=== PATIENT | female | born 1935 | race Caucasian/White ===

== ENCOUNTER 2017-10-14 17:59 | Emergency (ER) | payer MEDICARE ==
[~2017-10-14] VITALS: Ht 172.7 cm; Wt 80.7 kg
[~2017-10-14 17:59] MED LIST: BENADRYL25 M1 PO; CITALOPRAM HBR40 MG PO; DOXYCYCLINE HY100 MG PO; LEVOTHYROXINE100 MCG PO; NORCO 10-325 T1 EACH PO; TRIAMTERENE-HC1 EAC1 PO; TYLENOL WITH C1 EACH PO
== END 2017-10-14 20:32 | disposition short-term general hospital (02) ==
LOC: ER 17:59
DX: Z53.21 Procedure and treatment not carried out due to patient leaving prior to being seen by health care provider (principal)

== ENCOUNTER 2017-11-30 01:52 | Inpatient (IN) | payer MEDICARE ==
[2017-11-30] VITALS (31 sets, daily range): BP systolic 97–177; BP diastolic 52–109
[~2017-11-30] VITALS: Ht 170.2 cm; Wt 83.1 kg
--- OUTSIDE RECORDS SUMMARY | 2017-11-30 01:55 | XMS REPORT | Continuity of Care Document ---
Author Author [facility] Organization [facility] Address [address] [place] [address] Phone Unavailable Care Team Providers Care Straightening Roll Operator Name Role Phone ROOSEVELT CHENG MD PCP Insurance Providers Guarantor Saeed Tavera Address [address] [place] [address] Email NONE Payer [employer] Policy Number [id number] Subscriber's Name Saeed Tavera Relationship 18 Self / Same As Patient Group Number [id number] Group Name RETIRED Advance Directives Directive Response Recorded Date/Time Does the patient have an advance directive? No 08/02/09 3:12pm If yes, is advance directive on file with [facility]? No 08/02/09 3:12pm If not on file with [facility] will patient provide a copy? No 12/17/13 10:36am Do you have a Directive to Physician? No 10/14/17 8:37pm Do you have a Medical Power of Planer Off Bearer? No 10/14/17 8:37pm Do you have an out of hospital Do Not Resuscitate Order? No 10/14/17 8:37pm Do you have any special needs we should be aware of? No 10/14/17 8:37pm Do you have a support person here with you today? Yes 10/14/17 8:37pm Did patient receive Notice of Privacy Practices? Yes 10/14/17 8:37pm Did patient receive patient rights and responsibilities? Yes 10/14/17 8:37pm Problems No problem information available. Medications Current Home Medications Medication Dose Units Route Directions Days Qty Instructions Start Date Acetaminophen With Codeine (Tylenol With Codeine #3 Tablet) 1 Each Tablet 300 Mg Oral Every 6 Hours Acetaminophen With Codeine (Tylenol With Codeine #3 Tablet) 1 Each Tablet 300 Mg Oral Every 6 Hours Citalopram Hydrobromide (Citalopram Hbr) 40 Mg Tablet 40 Mg Oral Daily Diphenhydramine Hcl (Benadryl) 25 Mg Capsule Mg Oral Daily Doxycycline Hyclate 100 Mg Capsule 100 Mg Oral Daily Doxycycline Hyclate 100 Mg Capsule 100 Mg Oral Daily Hydrocodone Bit/Acetaminophen ([place] 10-325 Tablet) 1 Each Tablet 10-325 Mg Oral Four Times Daily Levothyroxine Sodium 100 Mcg Tablet 100 Mcg Oral Daily Triamterene/Hydrochlorothiazid (Triamterene-Hctz 75-50 Mg Tab) 1 Each Tablet Mg Oral Daily Social History Social History Problem Response Recorded Date/Time Onset Date Status Hx Psychiatric Problems No 12/20/2013 11:04am Not Applicable Not Applicable Hx Depression Y - depression 12/20/2013 11:04am Not Applicable Not Applicable Hospital Discharge Instructions No hospital discharge instruction information available. Plan of Care Discharge Date 10/14/17 8:32pm Disposition REQUEST WITHDRAWN FOR MSE Condition at Discharge Stable Forms Provided Work/School Excuse Prescriptions See Medication Section Functional Status No functional status information available. Allergies, Adverse Reactions, Alerts Allergen Type Severity Reaction Status Last Updated Iodine Allergy Mild Active 10/14/17 Cephalexin Allergy Unknown Active 10/14/17 EGGS Allergy Unknown Active 08/03/09 Immunizations No immunization information available. Vital Signs Acute Vital Signs Vital Response Date/Time Height 5 ft 8 in 10/14/2017 6:28pm Weight 178 lb 10/14/2017 6:28pm Body Mass Index 27.1 kg/m^2 10/14/2017 6:28pm Results No relevant diagnostic test, laboratory data and/or discharge summary information available. Procedures No procedure information available. Encounters Encounter Location Arrival/Admit Date Discharge/Depart Date Attending Provider Departed Emergency Room [facility] 10/14/17 5:59pm 8:32pm MEGAN NULL MD
[2017-11-30] MEDS ORDERED: SODIUM CHLORIDE 0.9% 1000ML 1,000 ML IV STA (02:29)
[2017-11-30] MEDS ORDERED: PANTOPRAZOLE 40 MG 10ML VIAL IV STA (02:29)
[2017-11-30] MEDS ORDERED: ONDANSETRON HCL 4 MG ORAL DISINTEGRATING TAB PO ONE (02:30)
[2017-11-30 02:43] LABS: BASOPHILS # (AUTO) 0.1 (0.0-0.1); BASOPHILS % 0.7 % (0.0-1.0); EOSINOPHILS # (AUTO) 0.2 (0.0-0.4); EOSINOPHILS % 1.6 % (0.0-6.0); HEMATOCRIT 50.4 % (34.2-44.1); HEMOGLOBIN 16.1 g/dL (12.0-16.0); LYMPHOCYTES # (AUTO) 2.8 (1.0-3.2); LYMPHOCYTES % 25.1 % (18.0-39.1); MEAN CORPUSCULAR HGB CONC 31.9 g/dL (31-35); MEAN CORPUSCULAR VOLUME 87.8 fL (81-99); MONOCYTES # (AUTO) 0.4 (0.2-0.8); MONOCYTES % 3.1 % (4.4-11.3); NEUTROPHILS # (AUTO) 7.8 (2.1-6.9); NEUTROPHILS % 69.1 % (38.7-80.0); PLATELET COUNT 226 x10e3/uL (140-360); RED BLOOD COUNT 5.74 x10e6/uL (3.6-5.1)
[2017-11-30 02:48] LABS: INR 0.97; PARTIAL THROMBOPLASTIN TIME 18.2 seconds (23.8-35.5); PROTHROMBIN TIME 12.1 seconds (11.9-14.5)
[2017-11-30 02:56] LABS: ALANINE AMINOTRANSFERASE 6 IU/L (0-55); ALBUMIN 4.1 g/dL (3.5-5.0); ALKALINE PHOSPHATASE 56 IU/L (40-150); AMYLASE 70 U/L (25-125); ANION GAP 20.2 mmol/L (8-16); BLOOD UREA NITROGEN 17 mg/dL (7-26); BUN/CREATININE RATIO 19 (6-25); CALCIUM 10.4 mg/dL (8.4-10.2); CARBON DIOXIDE 23 mmol/L (22-29); CHLORIDE 98 mmol/L (98-107); CREATINE KINASE 36 IU/L (29-168); EST GLOMERULAR FILTRATION RATE 60 ML/MIN (60-); GLUCOSE 138 mg/dL (74-118); LIPASE 64 U/L (8-78); MAGNESIUM 1.9 MG/DL (1.3-2.1); POTASSIUM 3.2 mmol/L (3.5-5.1); SODIUM 138 mmol/L (136-145)
[2017-11-30 03:16] LABS: THYROID STIMULATING HORMONE 5.115 uIU/mL (0.350-4.940)
--- NOTE | 2017-11-30 04:08 | Diagnostic Imaging Report ---
CHEST SINGLE (PORTABLE), 11/30/2017 2:29 AM Technique: CHEST SINGLE (PORTABLE) Comparison: None available. Clinical history: Nausea, vomiting Findings: See Impression Impression: 1. Normal heart size. Atherosclerotic disease. Prominent ascending thoracic aortic contour which may be related to tortuosity or ectasia. Recommend follow-up upright PA and lateral. 2. Mild bibasilar atelectasis. No effusion or pneumothorax. Signed by: Dr Susy Mary MD on 11/30/2017 4:04 AM
--- NOTE | 2017-11-30 04:29 | Diagnostic Imaging Report ---
EXAM: CT ABDOMEN/PELVIS WO DATE: 11/30/2017 2:29 AM INDICATION: \S\N/V, LLQ MASS ? HERNIA ? SBO, UNABLE TO DRINK PO CONTRAST \S\[id number] \S\[id number] COMPARISON: None TECHNIQUE: The abdomen and pelvis were scanned using a multidetector helical scanner. Coronal and sagittal reformations were obtained. Routine protocol performed. IV Contrast: 0 ml Isovue 300/370 FINDINGS: Lack of IV contrast decreases sensitivity in evaluating abdominal and pelvic organs. In addition, evaluation is degraded by noise related to arm positioning and spinal hardware. LOWER THORAX: Mild bibasilar atelectasis. Coronary artery disease. Partially imaged bilateral breast implants, the right laterally deviated. LIVER/BILIARY: No gross masses. Mild biliary ductal dilation status post ed cholecystectomy SPLEEN: Unremarkable PANCREAS: Unremarkable ADRENALS: No nodules KIDNEYS: Simple appearing 3.7 cm right inferior renal cystic lesion. Diffuse renal vascular calcifications. No hydronephrosis. 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 No significant upstream bowel dilatation. Diverticulosis. VESSELS: Severe atherosclerotic calcifications with focal ectasia of the infrarenal abdominal aorta measuring up to 2.6 cm PERITONEUM/RETROPERITONEUM: No free air or fluid LYMPH NODES: No lymphadenopathy REPRODUCTIVE ORGANS/BLADDER: Bladder decompressed with a Murphy. Limited by streak artifact. SOFT TISSUES: See above BONES: Multilevel degenerative changes. Postsurgical changes with L4-S1 fusion/decompression and left hip arthroplasty. Mild height loss of T8-T9 and anterior L2. Minimal retrolisthesis of L1 over L2, anterolisthesis of L3 over L4. IMPRESSION: Evaluation degraded by lack of IV contrast, particularly in the assessment of bowel/bowel wall. 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 Discussed with Dr. Pozo at 4:20 AM on 11/30/2017. Signed by: Dr Susy Mary MD on 11/30/2017 4:26 AM
[2017-11-30 04:33] LABS: B-TYPE NATRIURETIC PEPTIDE2 < 10.0 pg/mL (0-100)
[2017-11-30 04:34] LABS: CLARITY,URINE CLEAR (CLEAR); COLOR,URINE YELLOW (YELLOW); LEUKOCYTE ESTERASE ,URINE 2+ (NEGATIVE); NITRITE,URINE NEGATIVE (NEGATIVE)
[2017-11-30 04:35] LABS: BILIRUBIN,URINE NEGATIVE (NEGATIVE); KETONES,URINE NEGATIVE (NEGATIVE); PROTEIN,URINE DIPSTICK 1+ (NEGATIVE); URINE UROBILINOGEN 1 mg/dL (0.2 - 1)
[2017-11-30 04:39] LABS: BACTERIA,URINE MANY /HPF; EPITHELIAL CELLS,URINE FEW /LPF; RENAL EPITHELIAL CELLS,URINE FEW; TRANSITIONAL EPI CELLS,URINE MANY; WBC,URINE (MAN) >50 /HPF (0-5)
[2017-11-30] MEDS ORDERED: KCL 20MEQ/.9 SOD CHL 1,000 ML IV ONE (04:45)
[2017-11-30] MEDS ORDERED: BENZOCAINE/TETRACAINE/BUTAMBEN AERO SPRAY 56 GM CAN TOP ONE (04:45)
[2017-11-30] MEDS ORDERED: POTASSIUM CHLORIDE 10MEQ/100ML 100 ML IV SCH (04:45)
[2017-11-30] MEDS ORDERED: D5.45%NS/KCL 20MEQ 1,000 ML IV ONE (04:45)
[2017-11-30] MEDS ORDERED: LIDOCAINE VISC 2% SOLN 15 ML UDC ONE (04:54)
[2017-11-30] MEDS: PIPER-TAZ 3.375 GM 50 ML IV SCH ×3 (05:04→17:33)
--- OUTSIDE RECORDS SUMMARY | 2017-11-30 05:12 | XMS REPORT ---
Author Author [facility] Address Unknown Phone Unavailable Care Team Providers Care Spinning Mule Operator Name Role Phone TUSHAR MICHAEL Unavailable Unavailable Problems This patient has no known problems. Allergies, Adverse Reactions, Alerts This patient has no known allergies or adverse reactions. Medications This patient has no known medications. Results Test Description Test Time Test Comments Text Results Atomic Results Result Comments CHEST SINGLE (PORTABLE) [place] [address] Patient Name: SAEED TAVERA MR #: [id number] : 1935 Age/Sex: 82/F Req #: [id number] Adm Physician: Ordered by: TUSHAR MICHAEL MD Report #: [id number] Location: ER Room/Bed: Procedure: [id number] DX/CHEST SINGLE (PORTABLE) Exam Date: 11/30/17 Exam Time: 0334 REPORT STATUS: Signed CHEST SINGLE ( PORTABLE), 11/30/2017 2:29 AM Technique: CHEST SINGLE (PORTABLE) Comparison: None available. Clinical history: Nausea, vomiting Findings: See Impression Impression: 1. Normal heart size. Atherosclerotic disease. Prominent ascending thoracic aortic contour which may be related to tortuosity or ectasia. Recommend follow-up upright PA and lateral. 2. Mild bibasilar atelectasis. No effusion or pneumothorax. Signed by: Dr Regina Mary MD on 11/30/2017 4:04 AM Dictated By: REGINA MARY MD 3 Transcribed By: LISA on 11/30/17403 COPY TO: TUSHAR MICHAEL MD CT ABDOMEN/PELVIS WO [place] [address] Patient Name: SAEED TAVERA MR #: [id number] : 1935 Age/Sex: 82/F Req #: [id number] Adm Physician: Ordered by: TUSHAR MICHAEL MD Report #: [id number] Location: ER Room/Bed: Procedure: [id number] CT/CT ABDOMEN/PELVIS WO Exam Date: 11/30/17 Exam Time: 324 REPORT STATUS: Signed EXAM: CT ABDOMEN/ PELVIS WO DATE: 11/30/2017 2:29 AM INDICATION: S N/V, LLQ MASS ? HERNIA ? SBO, UNABLE TO DRINK PO CONTRAST COMPARISON: None TECHNIQUE: The abdomen and pelvis were scanned using a multidetector helical scanner. Coronal and sagittal reformations were obtained. Routine protocol performed. IV Contrast: 0 ml Isovue 300/370 FINDINGS: Lack of IV contrast decreases sensitivity in evaluating abdominal and pelvic organs. In addition, evaluation is degraded by noise related to arm positioning and spinal hardware. LOWER THORAX: Mild bibasilar atelectasis. Coronary artery disease. Partially imaged bilateral breast implants, the right laterally deviated. LIVER/BILIARY: No gross masses. Mild biliary ductal dilation status post ed cholecystectomy SPLEEN: Unremarkable PANCREAS: Unremarkable ADRENALS: No nodules KIDNEYS: Simple appearing 3.7 cm right inferior renal cystic lesion. Diffuse renal vascular calcifications. No hydronephrosis. 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 No significant upstream bowel dilatation. Diverticulosis. VESSELS: Severe atherosclerotic calcifications with focal ectasia of the infrarenal abdominal aorta measuring up to 2.6 cm PERITONEUM/RETROPERITONEUM: No free air or fluid LYMPH NODES: No lymphadenopathy REPRODUCTIVE ORGANS/BLADDER: Bladder decompressed with a Murphy. Limited by streak artifact. SOFT TISSUES: See above BONES: Multilevel degenerative changes. Postsurgical changes with L4-S1 fusion/ decompression and left hip arthroplasty. Mild height loss of T8-T9 and anterior L2. Minimal retrolisthesis of L1 over L2, anterolisthesis of L3 over L4. IMPRESSION: Evaluation degraded by lack of IV contrast, particularly in the assessment of bowel/bowel wall. 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 Discussed with Dr. Michael at 4:20 AM on 2017. Signed by: Dr Regina Mary MD on 11/30/2017 4:26 AM Dictated By: REGINA MARY MD 5 COPY TO: TUSHAR MICHAEL MD
[2017-11-30] MEDS ORDERED: ONDANSETRON HCL 4 MG ORAL DISINTEGRATING TAB PO PRN (05:15)
[2017-11-30] MEDS ORDERED: MORPHINE SULFATE 2 MG/ML SYR IV PRN (05:15)
[2017-11-30] MEDS: HYDRALAZINE HCL 20 MG/ML VIAL IV PRN ×3 (06:30→19:44)
[2017-11-30] MEDS ORDERED: HYDRALAZINE HCL 20 MG/ML VIAL IV PRN (06:30)
[2017-11-30] MEDS ORDERED: BUPIVACAINE 0.25%/EPI 30ML SDV INJ ONE (06:37)
[2017-11-30] MEDS ORDERED: SODIUM CHLORIDE 0.9% 50ML 0 ML ONE (06:42)
[2017-11-30] MEDS: METRONIDAZOLE 500MG/NS 100ML 100 ML IV SCH ×3 (07:06→18:29)
[2017-11-30] MEDS ORDERED: HYDROMORPHONE 1MG/1ML INJ IV PRN (07:45)
[2017-11-30] MEDS: PANTOPRAZOLE 40 MG 10ML VIAL IV SCH (09:40)
[2017-11-30] MEDS: SODIUM CHLORIDE 0.9% 1000ML 1,000 ML IV SCH ×4 (09:40→23:45)
--- NOTE | 2017-11-30 10:59 | History and Physical ---
An 82-year-old female comes in with abdominal pain. HISTORY OF PRESENT ILLNESS: This is Ms. Godoy with a history of hypertension, history of depression, osteoarthritis, fibromyalgia, who was in her usual state of health until the patient started to have nausea, vomiting and abdominal pain. The patient came in and was found to have spigelian hernia. The patient is due to emergent surgery. PAST MEDICAL HISTORY: History of hypertension, history of hypothyroidism, history of fibromyalgia, history of low back pain, and history of depression too, and osteoarthritis. PAST SURGICAL HISTORY: The patient has a history of appendectomy, cholecystectomy, left hip surgery, hysterectomy, and right and left mastectomies. MEDICATIONS: She takes at home: 1. Acetaminophen with codeine for back pain. 2. Citalopram 40 mg daily. 3. Benadryl 25 mg as needed. 4. Doxycycline at this time 100 mg twice a day. 5. Hydrocodone 10 mg per 325 mg q.i.d. 6. Levothyroxine 100 mcg a day. 7. Triamterene with hydrochlorothiazide 75 mg per 50 mg once a day. SOCIAL HISTORY: Lives by herself. No ETOH. No IV drug abuse. REVIEW OF SYSTEMS: Negative for chest pain. No shortness of breath. Positive for nausea and vomiting. No diarrhea. No constipation. No rectal bleeding, hematochezia and no hematemesis either. No diplopia. No blurry vision. Positive for back pain. Positive for generalized body aches. The patient has been seen by Dr. Proctor about a month ago. At that time, the patient refused surgery, and comes now for abdominal pain. PHYSICAL EXAMINATION GENERAL: The patient is alert and oriented times 3. VITAL SIGNS: Temperature is 98.9, pulse 78, respirations 14, blood pressure 216/101, pulse ox is 89% and then came up to 97%. Blood pressure better at 169/75 at this time. HEENT: Normocephalic and atraumatic. Pupils reactive to light and accommodation. CV: S1 and S2 normal. Regular rate and rhythm. ABDOMEN: Nontender and nondistended. EXTREMITIES: No clubbing. No cyanosis. No edema. NEUROLOGICAL: Alert. Mental status: The patient has normal response. Reflexes are normal. No sensory deficits noted. LABS: Initial white count was 11,000, hemoglobin 16.1, hematocrit 50.4. Chemistry: Sodium of 138, potassium 3.2, anion gap 20.2. Lactic acid was 28.8. Total bilirubin was 1.3. TSH was 5.14. Coags were good. PT 12.1, INR 0.97. The patient's CT of the abdomen shows a left lower quadrant spigelian hernia containing dilated small bowel with mesenteric edema. Chest x-ray shows normal heart size, mild vascular atelectasis. No effusion or pneumothorax. ASSESSMENT 1. Spigelian hernia: Plan is to take her to surgery. 2. Sepsis. 3. Hypertension. 4. History of depression. The patient will undergo surgery. Postoperative care to be followed. Dr. Proctor has been consulted, and will continue to monitor the patient with checking her lytes in the morning. Job#: [id number] MARYSE
[2017-11-30] MEDS ORDERED: ACETAMINOPHEN 1000 MG/100 ML IV NR (11:45)
[2017-11-30] MEDS ORDERED: ACETAMINOPHEN 325 MG TAB PO PRN (11:45)
[2017-11-30] MEDS ORDERED: VITAMIN D1000 UNI1 PO (15:03)
[2017-11-30] MEDS ORDERED: BENADRYL25 M1 PO (15:03)
[2017-11-30] MEDS: HYDROMORPHONE 2MG/ML INJ IV PRN ×2 (16:14→21:52)
[2017-11-30 16:26] LABS: BASOPHILS % 0.3 % (0.0-1.0); HEMATOCRIT 51.4 % (34.2-44.1); HEMOGLOBIN 16.8 g/dL (12.0-16.0); LYMPHOCYTES # (AUTO) 1.4 (1.0-3.2); LYMPHOCYTES % 11.1 % (18.0-39.1); MEAN CORPUSCULAR HEMOGLOBIN 28.4 pg (28-32); MEAN CORPUSCULAR HGB CONC 32.7 g/dL (31-35); MEAN CORPUSCULAR VOLUME 86.8 fL (81-99); MONOCYTES # (AUTO) 0.5 (0.2-0.8); NEUTROPHILS % 84.1 % (38.7-80.0); PLATELET COUNT 269 x10e3/uL (140-360); RED BLOOD COUNT 5.92 x10e6/uL (3.6-5.1); RED CELL DISTRIBUTION WIDTH 14.3 % (11.7-14.4)
[2017-11-30 16:49] LABS: ALANINE AMINOTRANSFERASE 9 IU/L (0-55); ALBUMIN 3.5 g/dL (3.5-5.0); ALKALINE PHOSPHATASE 47 IU/L (40-150); AMYLASE 57 U/L (25-125); ANION GAP 14.4 mmol/L (8-16); BLOOD UREA NITROGEN 19 mg/dL (7-26); BUN/CREATININE RATIO 25 (6-25); CALCIUM 9.6 mg/dL (8.4-10.2); CARBON DIOXIDE 22 mmol/L (22-29); CHLORIDE 106 mmol/L (98-107); CREATININE, SERUM 0.77 mg/dL (0.57-1.11); EST GLOMERULAR FILTRATION RATE > 60 ML/MIN (60-); GLUCOSE 122 mg/dL (74-118); POTASSIUM 3.4 mmol/L (3.5-5.1); SODIUM 139 mmol/L (136-145)
[2017-12-01] VITALS (39 sets, daily range): BP systolic 95–174; BP diastolic 62–131
[2017-12-01] MEDS: METRONIDAZOLE 500MG/NS 100ML 100 ML IV SCH ×5 (05:30→23:18)
[2017-12-01] MEDS: HYDROMORPHONE 2MG/ML INJ IV PRN ×2 (06:20→20:31)
[2017-12-01] MEDS: PIPER-TAZ 3.375 GM 50 ML IV SCH ×4 (06:32→17:26)
[2017-12-01] MEDS: SODIUM CHLORIDE 0.9% 1000ML 1,000 ML IV SCH ×3 (08:30→23:17)
[2017-12-01] MEDS: PANTOPRAZOLE 40 MG 10ML VIAL IV SCH (09:00)
--- NOTE | 2017-12-01 11:17 | Consultation ---
DATE OF CONSULTATION: December 01, 2017 This is an 82-year-old lady who has history of hypertension, history of hypothyroidism, history of fibromyalgia, who presented to the hospital because of abdominal pain mainly to the left upper quadrant area. The patient apparently had diarrhea on admission. Her workup so far revealed that she had a CT scan of the abdomen and pelvis on admission, which shows left lower quadrant spigelian hernia containing dilated small bowel and mesenteric edema and fluid, possibly incarceration. The patient denies any previous history of colonoscopy. Other medical problems are history of hypertension, history of hypothyroidism, history of fibromyalgia, chronic back pain, depression, osteoarthritis. She is status post appendectomy, cholecystectomy, left hip surgery, hysterectomy, right and left mastectomy. MEDICATIONS: At home including citalopram, Benadryl, doxycycline, hydrocodone, levothyroxine, triamterene, hydrochlorothiazide. SOCIAL HISTORY: Noncontributory. REVIEW OF SYSTEMS: Denies any chest pain. Denies any shortness of breath. Denies any dysphagia or odynophagia. Denies any dysuria, hematuria or any kind of syncopal episode. PHYSICAL EXAMINATION GENERAL: The patient is awake, alert and appears to be stable. LUNGS: Decreased at this point. VITAL SIGNS: Afebrile currently. HEENT: Normocephalic and atraumatic. Sclerae are anicteric. NECK: Supple. HEART: Sounds regular. ABDOMEN: Soft. Localized tenderness in the left lower quadrant area is noted. No rebound or mass. EXTREMITIES: No clubbing. LAB VALUES: WBC of 13,000 yesterday, hemoglobin 16.8. Potassium 3.2. The rest of the BMP is normal. Bilirubin of 1.8. CT scan as mentioned above. ASSESSMENT 1. Abdominal pain, mostly in the left upper quadrant area: I suspect this has to do with the hernia. 2. History of hypertension. 3. History of hypothyroidism. PLAN: Continue antibiotics at this point. The patient will probably need surgery if symptoms persist. Job#: [id number] RI cc:ROOSEVELT CHENG MD
[2017-12-02] VITALS (49 sets, daily range): BP systolic 97–197; BP diastolic 65–114
[2017-12-02] MEDS: PIPER-TAZ 3.375 GM 50 ML IV SCH ×4 (00:13→18:06)
[2017-12-02] MEDS: HYDROMORPHONE 2MG/ML INJ IV PRN ×5 (02:54→23:35)
[2017-12-02 06:06] LABS: BASOPHILS # (AUTO) 0.1 (0.0-0.1); BASOPHILS % 0.8 % (0.0-1.0); EOSINOPHILS # (AUTO) 0.2 (0.0-0.4); EOSINOPHILS % 1.6 % (0.0-6.0); HEMATOCRIT 40.6 % (34.2-44.1); HEMOGLOBIN 12.4 g/dL (12.0-16.0); LYMPHOCYTES # (AUTO) 2.1 (1.0-3.2); LYMPHOCYTES % 18.4 % (18.0-39.1); MEAN CORPUSCULAR HEMOGLOBIN 28.5 pg (28-32); MEAN CORPUSCULAR HGB CONC 30.5 g/dL (31-35); MEAN CORPUSCULAR VOLUME 93.3 fL (81-99); MONOCYTES # (AUTO) 0.6 (0.2-0.8); MONOCYTES % 5.2 % (4.4-11.3); NEUTROPHILS # (AUTO) 8.4 (2.1-6.9); NEUTROPHILS % 73.6 % (38.7-80.0); PLATELET COUNT 173 x10e3/uL (140-360); RED BLOOD COUNT 4.35 x10e6/uL (3.6-5.1); RED CELL DISTRIBUTION WIDTH 14.8 % (11.7-14.4)
[2017-12-02 06:28] LABS: ALBUMIN 3.2 g/dL (3.5-5.0); ALBUMIN/GLOBULIN RATIO 1.3 (0.8-2.0); ALKALINE PHOSPHATASE 33 IU/L (40-150); ANION GAP 12.8 mmol/L (8-16); BLOOD UREA NITROGEN 20 mg/dL (7-26); BUN/CREATININE RATIO 27 (6-25); CARBON DIOXIDE 21 mmol/L (22-29); CHLORIDE 112 mmol/L (98-107); CREATININE, SERUM 0.73 mg/dL (0.57-1.11); EST GLOMERULAR FILTRATION RATE > 60 ML/MIN (60-); GLUCOSE 84 mg/dL (74-118); MAGNESIUM 1.5 MG/DL (1.3-2.1); POTASSIUM 3.8 mmol/L (3.5-5.1); SODIUM 142 mmol/L (136-145)
[2017-12-02] MEDS: METRONIDAZOLE 500MG/NS 100ML 100 ML IV SCH ×4 (06:33→23:21)
[2017-12-02 06:34] LABS: ALANINE AMINOTRANSFERASE < 6 IU/L (0-55)
[2017-12-02] MEDS ORDERED: SODIUM CHLORIDE 0.9% 1000ML 1,000 ML IV SCH (06:45)
[2017-12-02] MEDS: SODIUM CHLORIDE 0.9% 1000ML 1,000 ML IV SCH ×3 (09:10→23:16)
[2017-12-02] MEDS: PANTOPRAZOLE 40 MG 10ML VIAL IV SCH ×2 (09:16→09:28)
[2017-12-03] VITALS (27 sets, daily range): BP systolic 129–194; BP diastolic 59–97
[2017-12-03] MEDS: PIPER-TAZ 3.375 GM 50 ML IV SCH ×5 (00:23→23:59)
[2017-12-03] MEDS: HYDROMORPHONE 2MG/ML INJ IV PRN ×5 (02:45→23:25)
[2017-12-03] MEDS: SODIUM CHLORIDE 0.9% 1000ML 1,000 ML IV SCH ×2 (04:18→17:32)
[2017-12-03] MEDS: METRONIDAZOLE 500MG/NS 100ML 100 ML IV SCH ×4 (05:07→23:59)
[2017-12-03 06:05] LABS: BASOPHILS # (AUTO) 0.1 (0.0-0.1); BASOPHILS % 0.8 % (0.0-1.0); EOSINOPHILS # (AUTO) 0.3 (0.0-0.4); EOSINOPHILS % 3.4 % (0.0-6.0); HEMATOCRIT 39.2 % (34.2-44.1); HEMOGLOBIN 11.8 g/dL (12.0-16.0); LYMPHOCYTES # (AUTO) 2.1 (1.0-3.2); LYMPHOCYTES % 23.6 % (18.0-39.1); MEAN CORPUSCULAR HEMOGLOBIN 28.4 pg (28-32); MEAN CORPUSCULAR HGB CONC 30.1 g/dL (31-35); MEAN CORPUSCULAR VOLUME 94.2 fL (81-99); MONOCYTES # (AUTO) 0.5 (0.2-0.8); MONOCYTES % 5.3 % (4.4-11.3); NEUTROPHILS % 66.5 % (38.7-80.0); PLATELET COUNT 155 x10e3/uL (140-360); RED BLOOD COUNT 4.16 x10e6/uL (3.6-5.1); RED CELL DISTRIBUTION WIDTH 14.7 % (11.7-14.4)
[2017-12-03 06:29] LABS: ALBUMIN 3.1 g/dL (3.5-5.0); ALBUMIN/GLOBULIN RATIO 1.2 (0.8-2.0); ALKALINE PHOSPHATASE 41 IU/L (40-150); ANION GAP 13.7 mmol/L (8-16); BLOOD UREA NITROGEN 15 mg/dL (7-26); BUN/CREATININE RATIO 22 (6-25); CALCIUM 8.9 mg/dL (8.4-10.2); CARBON DIOXIDE 18 mmol/L (22-29); CHLORIDE 113 mmol/L (98-107); CREATININE, SERUM 0.67 mg/dL (0.57-1.11); EST GLOMERULAR FILTRATION RATE > 60 ML/MIN (60-); GLUCOSE 68 mg/dL (74-118); MAGNESIUM 1.6 MG/DL (1.3-2.1); POTASSIUM 3.7 mmol/L (3.5-5.1); SODIUM 141 mmol/L (136-145)
[2017-12-03 06:55] LABS: ALANINE AMINOTRANSFERASE < 6 IU/L (0-55)
[2017-12-03] MEDS: HYDRALAZINE HCL 20 MG/ML VIAL IV PRN ×2 (12:10→19:37)
[2017-12-03] MEDS: PANTOPRAZOLE 40 MG 10ML VIAL IV SCH (14:57)
[2017-12-04] MEDS: HYDROMORPHONE 2MG/ML INJ IV PRN ×5 (04:56→22:14)
[2017-12-04] MEDS: METRONIDAZOLE 500MG/NS 100ML 100 ML IV SCH ×3 (05:01→19:50)
[2017-12-04] MEDS: PIPER-TAZ 3.375 GM 50 ML IV SCH ×3 (05:01→18:23)
[2017-12-04 05:27] VITALS: BP 141/75
[2017-12-04 07:20] VITALS: BP 129/62
[2017-12-04] MEDS: SODIUM CHLORIDE 0.9% 1000ML 1,000 ML IV SCH ×2 (09:00→22:18)
[2017-12-04 12:12] VITALS: BP 153/58
[2017-12-04 16:58] VITALS: BP 167/79
[2017-12-04 22:21] VITALS: BP 162/65
[2017-12-04 22:41] VITALS: BP 162/65
[2017-12-05] VITALS (10 sets, daily range): BP systolic 128–208; BP diastolic 65–108
[2017-12-05] MEDS: PIPER-TAZ 3.375 GM 50 ML IV SCH ×2 (06:33→06:40)
[2017-12-05] MEDS: METRONIDAZOLE 500MG/NS 100ML 100 ML IV SCH ×4 (06:33→21:11)
[2017-12-05] MEDS: HYDRALAZINE HCL 20 MG/ML VIAL IV PRN ×2 (06:35→16:04)
[2017-12-05] MEDS: SODIUM CHLORIDE 0.9% 1000ML 1,000 ML IV SCH ×3 (06:40→15:45)
[2017-12-05 08:50] LABS: BASOPHILS % 0.4 % (0.0-1.0); EOSINOPHILS # (AUTO) 0.2 (0.0-0.4); EOSINOPHILS % 1.9 % (0.0-6.0); HEMATOCRIT 40.7 % (34.2-44.1); HEMOGLOBIN 13.4 g/dL (12.0-16.0); LYMPHOCYTES # (AUTO) 1.5 (1.0-3.2); LYMPHOCYTES % 16.6 % (18.0-39.1); MEAN CORPUSCULAR HEMOGLOBIN 28.2 pg (28-32); MEAN CORPUSCULAR HGB CONC 32.9 g/dL (31-35); MEAN CORPUSCULAR VOLUME 85.7 fL (81-99); MONOCYTES # (AUTO) 0.6 (0.2-0.8); MONOCYTES % 6.6 % (4.4-11.3); NEUTROPHILS # (AUTO) 6.7 (2.1-6.9); NEUTROPHILS % 74.3 % (38.7-80.0); PLATELET COUNT 216 x10e3/uL (140-360); RED BLOOD COUNT 4.75 x10e6/uL (3.6-5.1); RED CELL DISTRIBUTION WIDTH 14.3 % (11.7-14.4)
[2017-12-05 09:03] LABS: ANION GAP 15.4 mmol/L (8-16); BLOOD UREA NITROGEN < 5 mg/dL (7-26); CALCIUM 9.1 mg/dL (8.4-10.2); CARBON DIOXIDE 19 mmol/L (22-29); CHLORIDE 106 mmol/L (98-107); EST GLOMERULAR FILTRATION RATE > 60 ML/MIN (60-); GLUCOSE 105 mg/dL (74-118); SODIUM 138 mmol/L (136-145)
[2017-12-05] MEDS: PANTOPRAZOLE 40 MG 10ML VIAL IV SCH (09:03)
[2017-12-05 09:21] LABS: BUN/CREATININE RATIO 8 (6-25); POTASSIUM 2.4 mmol/L (3.5-5.1)
[2017-12-05] MEDS ORDERED: POTASSIUM CHLORIDE 20MEQ/100ML 300 ML IV ONE (09:45)
[2017-12-05] MEDS: POTASSIUM CHLORIDE 20MEQ/100ML 100 ML IV SCH ×3 (10:05→14:34)
[2017-12-05] MEDS: HYDROMORPHONE 2MG/ML INJ IV PRN ×3 (10:59→21:50)
[2017-12-05] MEDS ORDERED: PIPER-TAZ 3.375 GM 50 ML IV SCH (15:30)
[2017-12-05] MEDS: PIPER-TAZ 3.375 GM 100 ML IV SCH ×2 (16:04→22:00)
[2017-12-05] MEDS: ONDANSETRON HCL 4 MG ORAL DISINTEGRATING TAB PO PRN (16:15)
[2017-12-06] VITALS (7 sets, daily range): BP systolic 149–197; BP diastolic 73–95
[2017-12-06] MEDS: HYDRALAZINE HCL 20 MG/ML VIAL IV PRN ×2 (00:35→08:46)
[2017-12-06] MEDS: PIPER-TAZ 3.375 GM 100 ML IV SCH ×4 (03:10→21:33)
[2017-12-06] MEDS: SODIUM CHLORIDE 0.9% 1000ML 1,000 ML IV SCH ×3 (03:53→15:45)
[2017-12-06] MEDS: METRONIDAZOLE 500MG/NS 100ML 100 ML IV SCH ×4 (04:00→22:22)
[2017-12-06] MEDS: HYDROMORPHONE 2MG/ML INJ IV PRN ×2 (04:31→12:42)
[2017-12-06 07:26] LABS: BASOPHILS % 0.6 % (0.0-1.0); EOSINOPHILS # (AUTO) 0.1 (0.0-0.4); EOSINOPHILS % 1.3 % (0.0-6.0); HEMATOCRIT 40.8 % (34.2-44.1); HEMOGLOBIN 13.2 g/dL (12.0-16.0); LYMPHOCYTES # (AUTO) 1.1 (1.0-3.2); LYMPHOCYTES % 15.4 % (18.0-39.1); MEAN CORPUSCULAR HEMOGLOBIN 28.2 pg (28-32); MEAN CORPUSCULAR HGB CONC 32.4 g/dL (31-35); MEAN CORPUSCULAR VOLUME 87.2 fL (81-99); MONOCYTES # (AUTO) 0.4 (0.2-0.8); MONOCYTES % 5.9 % (4.4-11.3); NEUTROPHILS # (AUTO) 5.4 (2.1-6.9); PLATELET COUNT 209 x10e3/uL (140-360); RED BLOOD COUNT 4.68 x10e6/uL (3.6-5.1); RED CELL DISTRIBUTION WIDTH 14.7 % (11.7-14.4)
[2017-12-06 07:49] LABS: ALBUMIN 3.2 g/dL (3.5-5.0); ALBUMIN/GLOBULIN RATIO 1.3 (0.8-2.0); ALKALINE PHOSPHATASE 30 IU/L (40-150); ANION GAP 16.9 mmol/L (8-16); BLOOD UREA NITROGEN < 5 mg/dL (7-26); CALCIUM 8.9 mg/dL (8.4-10.2); CARBON DIOXIDE 19 mmol/L (22-29); CHLORIDE 106 mmol/L (98-107); CREATININE, SERUM 0.58 mg/dL (0.57-1.11); EST GLOMERULAR FILTRATION RATE > 60 ML/MIN (60-); GLUCOSE 96 mg/dL (74-118); SODIUM 139 mmol/L (136-145)
[2017-12-06 08:00] LABS: ALANINE AMINOTRANSFERASE < 6 IU/L (0-55); BUN/CREATININE RATIO 9 (6-25)
[2017-12-06 08:01] LABS: POTASSIUM 2.9 mmol/L (3.5-5.1)
[2017-12-06] MEDS ORDERED: POTASSIUM CHLORIDE 20MEQ/100ML 300 ML IV ONE (08:15)
[2017-12-06] MEDS: POTASSIUM CHLORIDE 20 MEQ TAB CR PO SCH (08:46)
[2017-12-06] MEDS: PANTOPRAZOLE 40 MG 10ML VIAL IV SCH (08:46)
[2017-12-06] MEDS ORDERED: METOPROLOL TARTRATE INJ 1 MG/ML VIAL IV PRN (09:45)
[2017-12-06] MEDS ORDERED: MAGNESIUM SULFATE 2GM/50ML 50 ML IV ONE ×2 (11:00→14:00)
--- NOTE | 2017-12-06 12:23 | Diagnostic Imaging Report ---
Examination: Single AP view of the chest. COMPARISON: Portable chest 11/30/2017 INDICATION: PICC placement IMPRESSION: 1. Lines and Tubes: Interval placement of right-sided PICC line, with distal tip projecting at the junction of the right and left innominate veins. 2. Lungs are grossly clear. No consolidation or effusion. Stable eventration of the right hemidiaphragm 3. Cardiomediastinal silhouette is normal. Pulmonary vasculature is normal. Atherosclerotic calcification of the aortic arch. 4. No acute bony abnormalities. Signed by: Dr. Yunior Hooper M.D. on 12/06/2017 12:20 PM
[2017-12-06] MEDS: METOPROLOL TARTRATE 25 MG TAB PO SCH (16:10)
[2017-12-07] VITALS (10 sets, daily range): BP systolic 130–188; BP diastolic 62–96
[2017-12-07] MEDS: METOPROLOL TARTRATE 25 MG TAB PO SCH ×5 (01:00→23:23)
[2017-12-07] MEDS: METRONIDAZOLE 500MG/NS 100ML 100 ML IV SCH ×3 (03:32→16:57)
[2017-12-07] MEDS: PIPER-TAZ 3.375 GM 100 ML IV SCH ×4 (04:29→23:23)
[2017-12-07] MEDS: HYDROMORPHONE 2MG/ML INJ IV PRN ×3 (05:53→20:24)
[2017-12-07 05:59] LABS: BASOPHILS % 0.6 % (0.0-1.0); EOSINOPHILS # (AUTO) 0.4 (0.0-0.4); EOSINOPHILS % 5.2 % (0.0-6.0); HEMATOCRIT 38.7 % (34.2-44.1); HEMOGLOBIN 12.8 g/dL (12.0-16.0); LYMPHOCYTES # (AUTO) 1.1 (1.0-3.2); LYMPHOCYTES % 16.8 % (18.0-39.1); MEAN CORPUSCULAR HEMOGLOBIN 28.2 pg (28-32); MEAN CORPUSCULAR HGB CONC 33.1 g/dL (31-35); MEAN CORPUSCULAR VOLUME 85.2 fL (81-99); MONOCYTES # (AUTO) 0.5 (0.2-0.8); MONOCYTES % 6.6 % (4.4-11.3); NEUTROPHILS # (AUTO) 4.8 (2.1-6.9); NEUTROPHILS % 70.5 % (38.7-80.0); PLATELET COUNT 193 x10e3/uL (140-360); RED BLOOD COUNT 4.54 x10e6/uL (3.6-5.1); RED CELL DISTRIBUTION WIDTH 14.8 % (11.7-14.4)
[2017-12-07 06:16] LABS: ALBUMIN 2.9 g/dL (3.5-5.0); ALBUMIN/GLOBULIN RATIO 1.2 (0.8-2.0); ALKALINE PHOSPHATASE 32 IU/L (40-150); ANION GAP 12.4 mmol/L (8-16); BLOOD UREA NITROGEN < 5 mg/dL (7-26); CALCIUM 8.5 mg/dL (8.4-10.2); CARBON DIOXIDE 24 mmol/L (22-29); CHLORIDE 106 mmol/L (98-107); CREATININE, SERUM 0.54 mg/dL (0.57-1.11); EST GLOMERULAR FILTRATION RATE > 60 ML/MIN (60-); GLUCOSE 99 mg/dL (74-118); MAGNESIUM 1.8 MG/DL (1.3-2.1); POTASSIUM 3.4 mmol/L (3.5-5.1); SODIUM 139 mmol/L (136-145)
[2017-12-07 06:20] LABS: ALANINE AMINOTRANSFERASE < 6 IU/L (0-55); BUN/CREATININE RATIO 9 (6-25)
[2017-12-07] MEDS ORDERED: SYNTHROID100 MCG PO (08:16)
[2017-12-07] MEDS: POTASSIUM CHLORIDE 20 MEQ TAB CR PO SCH (08:36)
[2017-12-07] MEDS: PANTOPRAZOLE 40 MG 10ML VIAL IV SCH (08:36)
[2017-12-07] MEDS: HYDRALAZINE HCL 20 MG/ML VIAL IV PRN (08:37)
[2017-12-07] MEDS: LEVOTHYROXINE SODIUM 100 MCG TAB PO SCH (09:16)
[2017-12-07] MEDS: CITALOPRAM HYDROBROMIDE 20 MG TAB PO SCH (09:16)
[2017-12-07] MEDS: TRIAMTERENE/HCTZ 37.5-25 MG TAB PO SCH (09:16)
[2017-12-07] MEDS ORDERED: D5.45%NS/KCL 20MEQ 1,000 ML IV SCH (14:45)
[2017-12-08] MEDS: D5.45%NS/KCL 20MEQ 1,000 ML IV SCH ×2 (00:55→13:21)
[2017-12-08] MEDS: METRONIDAZOLE 500MG/NS 100ML 100 ML IV SCH ×4 (00:55→17:40)
[2017-12-08 04:30] VITALS: BP 178/88
[2017-12-08] MEDS: LEVOTHYROXINE SODIUM 100 MCG TAB PO SCH (05:15)
[2017-12-08] MEDS: METOPROLOL TARTRATE 25 MG TAB PO SCH ×3 (05:15→17:40)
[2017-12-08] MEDS: HYDROMORPHONE 2MG/ML INJ IV PRN (05:16)
[2017-12-08] MEDS: HYDRALAZINE HCL 20 MG/ML VIAL IV PRN (05:16)
[2017-12-08 05:25] LABS: BASOPHILS % 0.4 % (0.0-1.0); EOSINOPHILS # (AUTO) 0.4 (0.0-0.4); EOSINOPHILS % 6.5 % (0.0-6.0); HEMATOCRIT 39.1 % (34.2-44.1); LYMPHOCYTES # (AUTO) 1.5 (1.0-3.2); LYMPHOCYTES % 22.6 % (18.0-39.1); MEAN CORPUSCULAR HEMOGLOBIN 28.4 pg (28-32); MEAN CORPUSCULAR HGB CONC 33.2 g/dL (31-35); MEAN CORPUSCULAR VOLUME 85.6 fL (81-99); MONOCYTES # (AUTO) 0.5 (0.2-0.8); NEUTROPHILS # (AUTO) 4.2 (2.1-6.9); NEUTROPHILS % 63.1 % (38.7-80.0); PLATELET COUNT 226 x10e3/uL (140-360); RED BLOOD COUNT 4.57 x10e6/uL (3.6-5.1)
[2017-12-08 05:35] LABS: INR 1.19; PROTHROMBIN TIME 14.2 seconds (11.9-14.5)
[2017-12-08 05:36] LABS: PARTIAL THROMBOPLASTIN TIME 32.3 seconds (23.8-35.5)
[2017-12-08 05:44] LABS: ALBUMIN 2.9 g/dL (3.5-5.0); ALBUMIN/GLOBULIN RATIO 1.2 (0.8-2.0); ALKALINE PHOSPHATASE 31 IU/L (40-150); ANION GAP 9.9 mmol/L (8-16); BLOOD UREA NITROGEN < 5 mg/dL (7-26); CALCIUM 8.9 mg/dL (8.4-10.2); CARBON DIOXIDE 27 mmol/L (22-29); CHLORIDE 102 mmol/L (98-107); CREATININE, SERUM 0.58 mg/dL (0.57-1.11); EST GLOMERULAR FILTRATION RATE > 60 ML/MIN (60-); GLUCOSE 108 mg/dL (74-118); POTASSIUM 3.9 mmol/L (3.5-5.1); SODIUM 135 mmol/L (136-145)
[2017-12-08 05:47] LABS: ALANINE AMINOTRANSFERASE < 6 IU/L (0-55); BUN/CREATININE RATIO 9 (6-25)
[2017-12-08] MEDS: PIPER-TAZ 3.375 GM 100 ML IV SCH ×3 (06:00→22:48)
[2017-12-08 08:00] VITALS: BP 146/70
[2017-12-08] MEDS: CITALOPRAM HYDROBROMIDE 20 MG TAB PO SCH (09:00)
[2017-12-08] MEDS: TRIAMTERENE/HCTZ 37.5-25 MG TAB PO SCH (09:00)
[2017-12-08] MEDS: PANTOPRAZOLE 40 MG 10ML VIAL IV SCH (09:40)
[2017-12-08] MEDS ORDERED: LIDOCAINE HCL 1% LOCAL INJ 20 ML VIAL ONE (11:35)
[2017-12-08] MEDS ORDERED: BUPIVACAINE 0.25%/EPI 30ML SDV INJ ONE (11:35)
[2017-12-08 12:00] VITALS: BP 140/66
[2017-12-08] MEDS ORDERED: METOCLOPRAMIDE HCL 10 MG/2ML VIAL ONE (12:59)
[2017-12-08] MEDS ORDERED: PROMETHAZINE HCL (IM) 25 MG/ML VIAL ONE (13:00)
--- NOTE | 2017-12-08 14:03 | Operative Report ---
DATE OF PROCEDURE: December 08, 2017 PREOPERATIVE DIAGNOSIS: Left lower quadrant spigelian hernia. POSTOPERATIVE DIAGNOSIS: Left lower quadrant spigelian hernia. OPERATION PERFORMED: Repair of left lower quadrant spigelian hernia with mesh. ANESTHESIA: General. COMPLICATIONS: None. ESTIMATED BLOOD LOSS: Minimal. DESCRIPTION OF PROCEDURE: With the patient lying in bed in the supine position under good general anesthesia, the abdomen was prepped with Betadine solution and draped in the usual manner. A left lower quadrant incision was made. It was carried down through the subcutaneous tissue down to the external oblique aponeurosis. A bulge was immediately seen lateral to the rectus muscle, representing the spigelian hernia. The external oblique was then opened along the length of its fibers, and immediately underneath a hernia sac was identified, which was from all of the surrounding structures, and the hernia sac was then reduced all the way back to the intra-abdominal cavity. The preperitoneal space was then developed without any difficulty, and an extended Prolene hernia system was placed in the preperitoneal space and the underlay patch was deployed without any problem. The overlay patch was then placed over the floor and sutured to the conjoined tendon and also to the reflection of the inguinal ligament using interrupted sutures of 0 Ethibond and 2-0 Vicryl. This gave us a satisfactory repair without any tension. The whole area was then thoroughly irrigated. Perfect hemostasis was ascertained. All layers were infiltrated on the way out with solution of 1/4 percent Marcaine and 1% lidocaine mixed in equal parts. The external oblique aponeurosis was closed with a running suture of 2-0 Vicryl. The subcutaneous tissue was approximated with 3-0 plain, and the skin was closed with clips. A dressing was applied. The sponge, lap and needle count was correct. The patient tolerated the procedure well and returned to the recovery room in stable condition. Job#: [id number] EV
[2017-12-08] MEDS ORDERED: FENTANYL CITRATE/PF 100MCG/2 ML INJ ONE (14:50)
[2017-12-08 16:00] VITALS: BP 152/75
[2017-12-08] MEDS: ONDANSETRON HCL 4 MG ORAL DISINTEGRATING TAB PO PRN (16:45)
[2017-12-08] MEDS: HYDROCODONE/APAP 7.5MG-325MG 1 EA TAB PO PRN ×2 (17:45→22:55)
[2017-12-08] MEDS ORDERED: SEVOFLURANE INHAL SOLN 250 ML PEN BTL ONE (17:49)
[2017-12-08] MEDS ORDERED: DEXAMETHASONE SOD PHOS INJ 4 MG/ML VIAL ONE (17:49)
[2017-12-08] MEDS ORDERED: HYDRALAZINE HCL 20 MG/ML VIAL ONE (17:49)
[2017-12-08] MEDS ORDERED: GLYCOPYRROLATE INJ 1MG/ 5 ML SYR ONE (17:49)
[2017-12-08] MEDS ORDERED: NEOSTIGMINE 5 MG/5ML SYR ONE (17:49)
[2017-12-08] MEDS ORDERED: ONDANSETRON HCL INJ 2 MG/ML VIAL ONE (17:49)
[2017-12-08] MEDS ORDERED: LABETALOL HCL 5 MG/ML 20ML VIAL ONE (17:49)
[2017-12-08] MEDS ORDERED: PROPOFOL IV EMULSION 10 MG/ML 20 ML VIAL ONE (17:49)
[2017-12-08] MEDS ORDERED: LIDOCAINE HCL 2% LOCAL INJ 5 ML SDV VIAL INJ ONE (17:49)
[2017-12-08 20:00] VITALS: BP 125/58
[2017-12-09] VITALS (7 sets, daily range): BP systolic 122–144; BP diastolic 58–66
[2017-12-09] MEDS: METRONIDAZOLE 500MG/NS 100ML 100 ML IV SCH ×4 (01:02→17:13)
[2017-12-09] MEDS: HYDROMORPHONE 2MG/ML INJ IV PRN ×3 (01:03→16:12)
[2017-12-09] MEDS: METOPROLOL TARTRATE 25 MG TAB PO SCH ×4 (01:05→17:13)
[2017-12-09] MEDS: D5.45%NS/KCL 20MEQ 1,000 ML IV SCH ×2 (02:41→17:12)
[2017-12-09] MEDS: LEVOTHYROXINE SODIUM 100 MCG TAB PO SCH (05:49)
[2017-12-09] MEDS: PIPER-TAZ 3.375 GM 100 ML IV SCH ×4 (06:44→17:13)
[2017-12-09] MEDS: CITALOPRAM HYDROBROMIDE 20 MG TAB PO SCH (09:58)
[2017-12-09] MEDS: TRIAMTERENE/HCTZ 37.5-25 MG TAB PO SCH (09:58)
[2017-12-09] MEDS: PANTOPRAZOLE 40 MG 10ML VIAL IV SCH (09:58)
[2017-12-09] MEDS: HYDROCODONE/APAP 7.5MG-325MG 1 EA TAB PO PRN ×2 (12:40→20:46)
[2017-12-10] VITALS (8 sets, daily range): BP systolic 116–170; BP diastolic 57–80
[2017-12-10] MEDS: METOPROLOL TARTRATE 25 MG TAB PO SCH ×4 (02:00→17:40)
[2017-12-10] MEDS: METRONIDAZOLE 500MG/NS 100ML 100 ML IV SCH ×4 (02:00→17:39)
[2017-12-10] MEDS: PIPER-TAZ 3.375 GM 100 ML IV SCH ×4 (02:00→17:39)
[2017-12-10] MEDS: LEVOTHYROXINE SODIUM 100 MCG TAB PO SCH (05:11)
[2017-12-10] MEDS: HYDROCODONE/APAP 7.5MG-325MG 1 EA TAB PO PRN ×2 (05:11→11:51)
[2017-12-10] MEDS: D5.45%NS/KCL 20MEQ 1,000 ML IV SCH (05:21)
[2017-12-10] MEDS: PANTOPRAZOLE 40 MG 10ML VIAL IV SCH (08:47)
[2017-12-10] MEDS: TRIAMTERENE/HCTZ 37.5-25 MG TAB PO SCH (08:47)
[2017-12-10] MEDS: CITALOPRAM HYDROBROMIDE 20 MG TAB PO SCH (08:47)
[2017-12-10] MEDS: HYDROCODONE/APAP 10MG-325MG TAB PO PRN ×2 (09:36→23:16)
[2017-12-11] VITALS: BP 142/71
[2017-12-11] MEDS: PIPER-TAZ 3.375 GM 100 ML IV SCH ×3 (00:27→12:24)
[2017-12-11] MEDS: METOPROLOL TARTRATE 25 MG TAB PO SCH ×3 (00:28→12:24)
[2017-12-11] MEDS: METRONIDAZOLE 500MG/NS 100ML 100 ML IV SCH ×3 (01:17→12:24)
[2017-12-11 04:00] VITALS: BP 129/63
[2017-12-11] MEDS: HYDROCODONE/APAP 7.5MG-325MG 1 EA TAB PO PRN ×2 (04:40→12:24)
[2017-12-11] MEDS: LEVOTHYROXINE SODIUM 100 MCG TAB PO SCH (06:30)
[2017-12-11 07:09] LABS: BASOPHILS % 0.5 % (0.0-1.0); EOSINOPHILS # (AUTO) 0.3 (0.0-0.4); EOSINOPHILS % 3.3 % (0.0-6.0); HEMATOCRIT 36.1 % (34.2-44.1); HEMOGLOBIN 11.6 g/dL (12.0-16.0); LYMPHOCYTES # (AUTO) 1.9 (1.0-3.2); LYMPHOCYTES % 23.5 % (18.0-39.1); MEAN CORPUSCULAR HEMOGLOBIN 28.4 pg (28-32); MEAN CORPUSCULAR HGB CONC 32.1 g/dL (31-35); MEAN CORPUSCULAR VOLUME 88.5 fL (81-99); MONOCYTES # (AUTO) 0.8 (0.2-0.8); MONOCYTES % 9.5 % (4.4-11.3); NEUTROPHILS # (AUTO) 5.1 (2.1-6.9); NEUTROPHILS % 62.3 % (38.7-80.0); PLATELET COUNT 273 x10e3/uL (140-360); RED BLOOD COUNT 4.08 x10e6/uL (3.6-5.1); RED CELL DISTRIBUTION WIDTH 15.3 % (11.7-14.4)
[2017-12-11 07:32] LABS: ALBUMIN 2.7 g/dL (3.5-5.0); ALKALINE PHOSPHATASE 30 IU/L (40-150); ANION GAP 10.7 mmol/L (8-16); BLOOD UREA NITROGEN 5 mg/dL (7-26); BUN/CREATININE RATIO 8 (6-25); CARBON DIOXIDE 29 mmol/L (22-29); CHLORIDE 102 mmol/L (98-107); CREATININE, SERUM 0.59 mg/dL (0.57-1.11); EST GLOMERULAR FILTRATION RATE > 60 ML/MIN (60-); GLUCOSE 101 mg/dL (74-118); POTASSIUM 3.7 mmol/L (3.5-5.1); SODIUM 138 mmol/L (136-145)
[2017-12-11 07:33] LABS: ALANINE AMINOTRANSFERASE < 6 IU/L (0-55)
[2017-12-11 08:05] VITALS: BP 139/70
[2017-12-11] MEDS: PANTOPRAZOLE 40 MG 10ML VIAL IV SCH (08:34)
[2017-12-11] MEDS: TRIAMTERENE/HCTZ 37.5-25 MG TAB PO SCH (08:34)
[2017-12-11] MEDS: CITALOPRAM HYDROBROMIDE 20 MG TAB PO SCH (08:34)
[2017-12-11] MEDS: HYDROCODONE/APAP 10MG-325MG TAB PO PRN ×2 (08:36→17:34)
[2017-12-11 12:05] VITALS: BP 137/74
[2017-12-11] MEDS ORDERED: METOPROLOL TART25 MG PO (14:17)
[2017-12-11] MEDS ORDERED: TYLENOL WITH C1 EACH PO (14:29)
[2017-12-11 16:00] VITALS: BP 134/62
--- NOTE | 2017-12-11 16:43 | Consultation ---
DATE OF CONSULTATION: December 06, 2017 CARDIOLOGY CONSULTATION REASON FOR CONSULTATION: AFib and cardiac clearance. HPI: This is an 82-year-old female that presented with abdominal pain. According to the patient, she started having nausea, vomiting and abdominal pain that she came into the emergency room for evaluation. In the ER, they did an ultrasound of the abdomen, and found that she had a hernia, and she was planned for emergent surgery. Cardiology was consulted for cardiac clearance. She was also having tachycardia with heart rate in the 120s, AFib with RVR. She denied any chest pain, any dizziness, any diaphoresis, any headache, or shortness of breath. The patient was also found to have a low potassium and magnesium. She had troponin done times that was negative. PAST MEDICAL HISTORY: Hypothyroidism, hypertension, fibromyalgia, low back pain, depression, osteoarthritis, GERD, and anemia. PAST SURGICAL HISTORY: Appendectomy, cholecystectomy, left hip surgery, hysterectomy, bilateral mastectomy preventative, and right knee replacement surgery. FAMILY HISTORY: Noncontributory. SOCIAL HISTORY: No smoking. No drinking. She lives at home with her sister. MEDICATIONS: See med list. ALLERGIES: SHE IS ALLERGIC TO EGGS, IODINE AND . REVIEW OF SYSTEMS: Negative except those mentioned above. PHYSICAL EXAMINATION VITAL SIGNS: Temperature 97, heart rate 72, blood pressure 150/90, respirations 18, oxygen saturation 97% on room air. GENERAL: She is awake, alert and oriented times 3. HEENT: Mucous membrane moist. NECK: Supple. LUNGS: Bilateral clear to auscultation. CARDIOVASCULAR: S1 and S2 present. ABDOMEN: Soft. NEUROLOGICAL: Intact. EXTREMITIES: Bilateral lower extremities dry with some trace edema and some scabs. LABS: Sodium 139, potassium 3.4, chloride 106, CO2 24, BUN 5, creatinine 0.54, glucose 99. White blood cells 6.79, hemoglobin 12.8, hematocrit 38.7, and platelets 193,000. PT 12.1, PTT 18.2 and INR 0.97. Magnesium 1.2. IMPRESSION 1. Hernia. 2. Paroxysmal atrial fibrillation. 3. Hypothyroidism. 4. Hypertension. 5. Hypokalemia. 6. Hypomagnesemia. 7. History of chronic pain. 8. History of depression. ASSESSMENT AND PLAN: Her heart rate converted back to normal sinus rhythm. We are planning on echocardiogram to assess the LV and valve function, and get her cleared for surgery. Will continue home blood pressure medication and her thyroid medication. Potassium and magnesium have been replaced. Further cardiac workup pending clinical course. Thank you for this consultation. DICTATED BY JAYA GONZALEZ NP Job#: [id number] RI
== END 2017-12-11 17:59 | disposition home health service (06) | DRG 854 ==
LOC: ER 01:52 → MED/SURG 05:09 → ICU 08:18 → IMCU 12-03 16:39 → MED/SURG 12-05 14:52
PROVIDERS: ADMIT Internal Medicine; ATTEND Internal Medicine
PROC: 0WUF0JZ Supplement Abdominal Wall with Synthetic Substitute, Open Approach (ICD-10-PCS; principal; 2017-12-08 12:00)
DX: A41.9 Sepsis, unspecified organism (principal); K43.6 Other and unspecified ventral hernia with obstruction, without gangrene; N39.0 Urinary tract infection, site not specified; E87.6 Hypokalemia; E83.42 Hypomagnesemia; K21.9 Gastro-esophageal reflux disease without esophagitis; I48.0 Paroxysmal atrial fibrillation; E03.9 Hypothyroidism, unspecified; G89.29 Other chronic pain; M79.7 Fibromyalgia; I10 Essential (primary) hypertension; D64.9 Anemia, unspecified; E86.0 Dehydration; R60.0 Localized edema
CPT/HCPCS: 36415; 36569; 51700; 71045; 74176; 80048; 80053; 81001; 82150; 82270; 82550; 82553; 82948; 83605; 83630; 83690; 83735; 83880; 84132; 84443; 84484; 85025; 85610; 85730; 87040; 87045; 87071; 87086; 87186; 87205; 87493; 93005; 93306; 96367; 96376; 97139; 99285; C1781; J0360; J1100; J2001; J2405; J2543; J2550; J2765; J3480; J7030

== ENCOUNTER 2020-11-13 19:30 | Emergency (ER) | payer MEDICARE ==
[~2020-11-13] VITALS: Ht 170.2 cm; Wt 83.0 kg
[~2020-11-13 19:30] MED LIST changes: +METOPROLOL TART25 MG PO; +SYNTHROID100 MCG PO; +VITAMIN D1000 UNI1 PO
[2020-11-13] MEDS ORDERED: ASPIRIN 81 MG CHEW TAB PO ONE (19:45)
[2020-11-13 20:09] LABS: BASOPHILS # (AUTO) 0.1 (0.0-0.1); BASOPHILS % 0.8 % (0.0-1.0); EOSINOPHILS # (AUTO) 0.1 (0.0-0.4); HEMATOCRIT 46.4 % (34.2-44.1); HEMOGLOBIN 14.9 g/dL (12.0-16.0); LYMPHOCYTES # (AUTO) 1.3 (1.0-3.2); LYMPHOCYTES % 14.8 % (18.0-39.1); MEAN CORPUSCULAR HEMOGLOBIN 26.9 pg (28-32); MEAN CORPUSCULAR HGB CONC 32.1 g/dL (31-35); MEAN CORPUSCULAR VOLUME 83.9 fL (81-99); MONOCYTES # (AUTO) 0.4 (0.2-0.8); MONOCYTES % 4.8 % (4.4-11.3); NEUTROPHILS % 78.2 % (38.7-80.0); PLATELET COUNT 225 x10e3/uL (140-360); RED BLOOD COUNT 5.53 x10e6/uL (3.6-5.1)
[2020-11-13] MEDS ORDERED: ONDANSETRON HCL 4 MG ORAL DISINTEGRATING TAB ONE (20:14)
[2020-11-13 21:48] LABS: ALANINE AMINOTRANSFERASE 10 IU/L (0-55); ALBUMIN 3.3 g/dL (3.5-5.0); ALBUMIN/GLOBULIN RATIO 0.9 (0.8-2.0); ALKALINE PHOSPHATASE 81 IU/L (40-150); ANION GAP 14.6 mmol/L (8-16); BLOOD UREA NITROGEN 9 mg/dL (7-26); BUN/CREATININE RATIO 15 (6-25); CALCIUM 9.5 mg/dL (8.4-10.2); CARBON DIOXIDE 27 mmol/L (22-29); CHLORIDE 98 mmol/L (98-107); CREATINE KINASE 58 IU/L (29-168); CREATININE, SERUM 0.62 mg/dL (0.57-1.11); EST GLOMERULAR FILTRATION RATE > 60 ML/MIN (60-); GLUCOSE 129 mg/dL (74-118); POTASSIUM 3.6 mmol/L (3.5-5.1); SODIUM 136 mmol/L (136-145)
[2020-11-13] MEDS ORDERED: HYDRALAZINE HCL 20 MG/ML VIAL IV STA (21:51)
[2020-11-14 00:03] LABS: CREATINE KINASE MB 1.1 ng/mL (0-5.0)
[2020-11-14 03:05] VITALS: BP 152/84
== END 2020-11-14 02:00 | disposition home or self-care (01) ==
LOC: ER 19:35
DX: R07.9 Chest pain, unspecified (principal); R06.02 Shortness of breath; I16.0 Hypertensive urgency; I10 Essential (primary) hypertension; E03.9 Hypothyroidism, unspecified; F32.9 Major depressive disorder, single episode, unspecified; Z20.822 Contact with and (suspected) exposure to COVID-19; Z96.651 Presence of right artificial knee joint
CPT/HCPCS: 36415; 71045; 80053; 82550; 82553; 83880; 84484; 85025; 93005; 99284; J0360; Q0162; U0002

== ENCOUNTER 2022-11-05 22:57 | Inpatient (IN) | payer MEDICARE ==
[~2022-11-05] VITALS: Ht 170.2 cm; Wt 68.2 kg
[2022-11-05] MEDS ORDERED: SODIUM CHLORIDE 0.9% 1000ML 1,000 ML IV STA (23:06)
[2022-11-06] VITALS (24 sets, daily range): BP systolic 104–172; BP diastolic 67–148; PULSE 64–126; RESP 14–29; TEMP 96.5–99.4; O2SAT 91–100
[2022-11-06 00:04] LABS: BASOPHILS # (AUTO) 0.1 (0.0-0.1); BASOPHILS % 0.5 % (0.0-1.0); EOSINOPHILS # (AUTO) 0.2 (0.0-0.4); HEMATOCRIT 49.8 % (34.2-44.1); HEMOGLOBIN 15.9 g/dL (12.0-16.0); LYMPHOCYTES # (AUTO) 1.5 (1.0-3.2); LYMPHOCYTES % 12.8 % (18.0-39.1); MEAN CORPUSCULAR HEMOGLOBIN 26.6 pg (28-32); MEAN CORPUSCULAR HGB CONC 31.9 g/dL (31-35); MEAN CORPUSCULAR VOLUME 83.4 fL (81-99); MONOCYTES # (AUTO) 0.6 (0.2-0.8); MONOCYTES % 4.7 % (4.4-11.3); NEUTROPHILS # (AUTO) 9.4 (2.1-6.9); NEUTROPHILS % 79.6 % (38.7-80.0); PLATELET COUNT 299 x10e3/uL (140-360); RED BLOOD COUNT 5.97 x10e6/uL (3.6-5.1); RED CELL DISTRIBUTION WIDTH 17.2 % (11.7-14.4)
[2022-11-06 00:07] LABS: CLARITY,URINE CLOUDY (CLEAR); COLOR,URINE AMBER (YELLOW); KETONES,URINE 2+ (NEGATIVE); LEUKOCYTE ESTERASE ,URINE TRACE (NEGATIVE); NITRITE,URINE NEGATIVE (NEGATIVE); PROTEIN,URINE DIPSTICK >=300 (NEGATIVE); URINE UROBILINOGEN 1 mg/dL (0.2 - 1)
[2022-11-06 00:20] LABS: RBC,URINE 21-50 /HPF (0-5)
[2022-11-06 00:21] LABS: BACTERIA,URINE FEW /HPF; EPITHELIAL CELLS,URINE MODERATE /LPF
[2022-11-06] MEDS ORDERED: PIPERACILLIN/TAZOBACTAM 3.375 GM VIAL ONE (00:21)
[2022-11-06 00:22] LABS: ALBUMIN 2.6 g/dL (3.5-5.0); ALBUMIN/GLOBULIN RATIO 0.7 (0.8-2.0); ALKALINE PHOSPHATASE 70 IU/L (40-150); ANION GAP 16.7 mmol/L (8-16); BLOOD UREA NITROGEN 18 mg/dL (7-26); BUN/CREATININE RATIO 33 (6-25); CALCIUM 9.1 mg/dL (8.4-10.2); CARBON DIOXIDE 23 mmol/L (22-29); CHLORIDE 104 mmol/L (98-107); CREATINE KINASE 23 IU/L (29-168); CREATININE, SERUM 0.55 mg/dL (0.57-1.11); GLUCOSE 110 mg/dL (74-118); POTASSIUM 3.7 mmol/L (3.5-5.1); SODIUM 140 mmol/L (136-145)
[2022-11-06 00:23] LABS: ALANINE AMINOTRANSFERASE < 6 IU/L (0-55)
[2022-11-06] MEDS ORDERED: Morphine 4mg INJECTION 4 MG/ML INJ IV PRN (01:00)
[2022-11-06] MEDS ORDERED: ONDANSETRON HCL INJ 2MG/ML 2ML 2 MG/ML VIAL IV PRN (01:00)
[2022-11-06] MEDS ORDERED: METOPROLOL TARTRATE INJ 1 MG/ML VIAL ONE (02:04)
[2022-11-06] MEDS: SODIUM CHLORIDE 0.9% 1000ML 1,000 ML IV SCH ×2 (06:01→19:49)
[2022-11-06 11:29] LABS: CREATINE KINASE 20 IU/L (29-168)
[2022-11-06] MEDS: BALSAM PERU/CASTOR OIL 60 GM OINT...G. TP SCH (12:30)
[2022-11-06] MEDS: NYSTATIN 100,000 UNITS/GM CRM 30GM TUBE TOP SCH (12:30)
[2022-11-06] MEDS: METOPROLOL TARTRATE 25 MG TAB PO SCH (17:10)
[2022-11-06 18:57] LABS: CREATINE KINASE 22 IU/L (29-168)
[2022-11-07] VITALS (28 sets, daily range): BP systolic 120–166; BP diastolic 55–127; PULSE 53–70; RESP 12–18; TEMP 97.2–98.3; O2SAT 96–100
[2022-11-07 06:01] LABS: BASOPHILS # (AUTO) 0.1 (0.0-0.1); BASOPHILS % 0.9 % (0.0-1.0); EOSINOPHILS # (AUTO) 0.3 (0.0-0.4); EOSINOPHILS % 3.8 % (0.0-6.0); HEMATOCRIT 38.9 % (34.2-44.1); HEMOGLOBIN 12.3 g/dL (12.0-16.0); LYMPHOCYTES # (AUTO) 1.5 (1.0-3.2); LYMPHOCYTES % 22.1 % (18.0-39.1); MEAN CORPUSCULAR HEMOGLOBIN 26.5 pg (28-32); MEAN CORPUSCULAR HGB CONC 31.6 g/dL (31-35); MEAN CORPUSCULAR VOLUME 83.7 fL (81-99); MONOCYTES # (AUTO) 0.4 (0.2-0.8); NEUTROPHILS # (AUTO) 4.4 (2.1-6.9); NEUTROPHILS % 66.6 % (38.7-80.0); PLATELET COUNT 180 x10e3/uL (140-360); RED BLOOD COUNT 4.65 x10e6/uL (3.6-5.1); RED CELL DISTRIBUTION WIDTH 15.9 % (11.7-14.4)
[2022-11-07 06:32] LABS: ALBUMIN/GLOBULIN RATIO 0.7 (0.8-2.0); ANION GAP 12.1 mmol/L (8-16); CALCIUM 8.3 mg/dL (8.4-10.2); CREATININE, SERUM 0.49 mg/dL (0.57-1.11); POTASSIUM 3.1 mmol/L (3.5-5.1)
[2022-11-07] MEDS: METOPROLOL TARTRATE 25 MG TAB PO SCH ×3 (09:00→18:38)
[2022-11-07] MEDS: SODIUM CHLORIDE 0.9% 1000ML 1,000 ML IV SCH ×5 (09:00→23:46)
[2022-11-07] MEDS: BALSAM PERU/CASTOR OIL 60 GM OINT...G. TP SCH (11:13)
[2022-11-07] MEDS: NYSTATIN 100,000 UNITS/GM CRM 30GM TUBE TOP SCH (11:13)
[2022-11-07] MEDS ORDERED: FUROSEMIDE INJ 10 MG/ML 2 ML VIAL IV ONE (16:45)
[2022-11-07] MEDS ORDERED: POTASSIUM CHLORIDE 10MEQ EA PO ONE (17:15)
[2022-11-08] VITALS (37 sets, daily range): BP systolic 97–190; BP diastolic 52–87; PULSE 52–117; RESP 12–26; TEMP 96.9–99.1; O2SAT 92–100
[2022-11-08 05:01] LABS: BASOPHILS # (AUTO) 0.1 (0.0-0.1); BASOPHILS % 0.6 % (0.0-1.0); EOSINOPHILS # (AUTO) 0.2 (0.0-0.4); EOSINOPHILS % 1.8 % (0.0-6.0); HEMATOCRIT 36.6 % (34.2-44.1); HEMOGLOBIN 11.5 g/dL (12.0-16.0); LYMPHOCYTES # (AUTO) 1.3 (1.0-3.2); LYMPHOCYTES % 12.8 % (18.0-39.1); MEAN CORPUSCULAR HEMOGLOBIN 26.4 pg (28-32); MEAN CORPUSCULAR HGB CONC 31.4 g/dL (31-35); MEAN CORPUSCULAR VOLUME 84.1 fL (81-99); MONOCYTES # (AUTO) 0.4 (0.2-0.8); MONOCYTES % 4.3 % (4.4-11.3); NEUTROPHILS # (AUTO) 8.2 (2.1-6.9); PLATELET COUNT 184 x10e3/uL (140-360); RED BLOOD COUNT 4.35 x10e6/uL (3.6-5.1); RED CELL DISTRIBUTION WIDTH 15.8 % (11.7-14.4)
[2022-11-08 05:18] LABS: ALBUMIN 1.8 g/dL (3.5-5.0); ALBUMIN/GLOBULIN RATIO 0.7 (0.8-2.0); ALKALINE PHOSPHATASE 45 IU/L (40-150); ANION GAP 12.2 mmol/L (8-16); BLOOD UREA NITROGEN 9 mg/dL (7-26); BUN/CREATININE RATIO 21 (6-25); CALCIUM 7.1 mg/dL (8.4-10.2); CARBON DIOXIDE 19 mmol/L (22-29); CHLORIDE 113 mmol/L (98-107); CREATININE, SERUM 0.42 mg/dL (0.57-1.11); GLUCOSE 78 mg/dL (74-118); MAGNESIUM 1.3 MG/DL (1.3-2.1); POTASSIUM 3.2 mmol/L (3.5-5.1); SODIUM 141 mmol/L (136-145)
[2022-11-08 05:38] LABS: ALANINE AMINOTRANSFERASE < 6 IU/L (0-55)
[2022-11-08] MEDS: METOPROLOL TARTRATE 25 MG TAB PO SCH ×3 (09:03→18:11)
[2022-11-08] MEDS: BALSAM PERU/CASTOR OIL 60 GM OINT...G. TP SCH (09:04)
[2022-11-08] MEDS: NYSTATIN 100,000 UNITS/GM CRM 30GM TUBE TOP SCH (09:04)
[2022-11-08] MEDS: SODIUM CHLORIDE 0.9% 1000ML 1,000 ML IV SCH ×2 (09:05→18:01)
[2022-11-08] MEDS: HYDRALAZINE HCL 20 MG/ML VIAL IV PRN (12:32)
[2022-11-08] MEDS: Morphine 2mg Syringe 2 MG/ML SYR IV PRN (13:07)
[2022-11-09] VITALS (7 sets, daily range): BP systolic 115–170; BP diastolic 62–81; PULSE 60–76; RESP 17–20; TEMP 97.5–98.3; O2SAT 95–100
[2022-11-09] MEDS: SODIUM CHLORIDE 0.9% 1000ML 1,000 ML IV SCH ×3 (01:38→17:03)
[2022-11-09] MEDS: HYDRALAZINE HCL 20 MG/ML VIAL IV PRN (05:44)
[2022-11-09] MEDS: METOPROLOL TARTRATE 25 MG TAB PO SCH (08:44)
[2022-11-09] MEDS ORDERED: POTASSIUM CHLORIDE 20MEQ/100ML 100 ML IV ONE (09:00)
[2022-11-09] MEDS: NYSTATIN 100,000 UNITS/GM CRM 30GM TUBE TOP SCH (09:00)
[2022-11-09] MEDS: BALSAM PERU/CASTOR OIL 60 GM OINT...G. TP SCH (14:27)
[2022-11-09] MEDS: CARVEDILOL 3.125 MG TAB PO SCH (16:58)
[2022-11-10] VITALS (9 sets, daily range): BP systolic 121–175; BP diastolic 64–88; PULSE 62–87; RESP 13–20; TEMP 97.5–98.2; O2SAT 96–100
[2022-11-10] MEDS: SODIUM CHLORIDE 0.9% 1000ML 1,000 ML IV SCH ×3 (04:37→22:02)
[2022-11-10 06:24] LABS: BASOPHILS % 0.7 % (0.0-1.0); EOSINOPHILS # (AUTO) 0.3 (0.0-0.4); EOSINOPHILS % 4.7 % (0.0-6.0); HEMATOCRIT 37.7 % (34.2-44.1); HEMOGLOBIN 11.8 g/dL (12.0-16.0); LYMPHOCYTES # (AUTO) 1.4 (1.0-3.2); LYMPHOCYTES % 23.4 % (18.0-39.1); MEAN CORPUSCULAR HEMOGLOBIN 26.2 pg (28-32); MEAN CORPUSCULAR HGB CONC 31.3 g/dL (31-35); MEAN CORPUSCULAR VOLUME 83.6 fL (81-99); MONOCYTES # (AUTO) 0.4 (0.2-0.8); MONOCYTES % 7.6 % (4.4-11.3); NEUTROPHILS # (AUTO) 3.6 (2.1-6.9); NEUTROPHILS % 62.7 % (38.7-80.0); PLATELET COUNT 184 x10e3/uL (140-360); RED BLOOD COUNT 4.51 x10e6/uL (3.6-5.1); RED CELL DISTRIBUTION WIDTH 15.7 % (11.7-14.4)
[2022-11-10 06:45] LABS: ALBUMIN 1.9 g/dL (3.5-5.0); ALBUMIN/GLOBULIN RATIO 0.7 (0.8-2.0); ALKALINE PHOSPHATASE 38 IU/L (40-150); ANION GAP 11.1 mmol/L (8-16); BLOOD UREA NITROGEN 8 mg/dL (7-26); BUN/CREATININE RATIO 19 (6-25); CARBON DIOXIDE 19 mmol/L (22-29); CHLORIDE 111 mmol/L (98-107); CREATININE, SERUM 0.42 mg/dL (0.57-1.11); GLUCOSE 80 mg/dL (74-118); MAGNESIUM 1.4 MG/DL (1.3-2.1); POTASSIUM 3.1 mmol/L (3.5-5.1); SODIUM 138 mmol/L (136-145)
[2022-11-10 06:50] LABS: ALANINE AMINOTRANSFERASE < 6 IU/L (0-55)
[2022-11-10] MEDS: CARVEDILOL 3.125 MG TAB PO SCH ×2 (08:47→16:57)
[2022-11-10] MEDS: NYSTATIN 100,000 UNITS/GM CRM 30GM TUBE TOP SCH (08:48)
[2022-11-10] MEDS: BALSAM PERU/CASTOR OIL 60 GM OINT...G. TP SCH (08:48)
[2022-11-10] MEDS ORDERED: POTASSIUM CHLORIDE 20MEQ/100ML 100 ML IV ONE (10:30)
[2022-11-11] VITALS (8 sets, daily range): BP systolic 130–179; BP diastolic 60–104; PULSE 63–77; RESP 17–20; TEMP 97–98.1; O2SAT 97–100
[2022-11-11] MEDS: Morphine 2mg Syringe 2 MG/ML SYR IV PRN ×2 (00:39→23:35)
[2022-11-11 06:08] LABS: BASOPHILS # (AUTO) 0.1 (0.0-0.1); EOSINOPHILS # (AUTO) 0.2 (0.0-0.4); EOSINOPHILS % 3.3 % (0.0-6.0); HEMOGLOBIN 12.2 g/dL (12.0-16.0); LYMPHOCYTES # (AUTO) 1.3 (1.0-3.2); LYMPHOCYTES % 21.6 % (18.0-39.1); MEAN CORPUSCULAR HEMOGLOBIN 27.4 pg (28-32); MEAN CORPUSCULAR HGB CONC 31.3 g/dL (31-35); MEAN CORPUSCULAR VOLUME 87.4 fL (81-99); MONOCYTES # (AUTO) 0.4 (0.2-0.8); MONOCYTES % 6.1 % (4.4-11.3); PLATELET COUNT 191 x10e3/uL (140-360); RED BLOOD COUNT 4.46 x10e6/uL (3.6-5.1)
[2022-11-11 06:58] LABS: ALBUMIN 1.9 g/dL (3.5-5.0); ALBUMIN/GLOBULIN RATIO 0.8 (0.8-2.0); ANION GAP 12.5 mmol/L (8-16); CALCIUM 7.8 mg/dL (8.4-10.2); CREATININE, SERUM 0.42 mg/dL (0.57-1.11); POTASSIUM 3.5 mmol/L (3.5-5.1)
[2022-11-11] MEDS: CARVEDILOL 3.125 MG TAB PO SCH ×2 (10:06→17:17)
[2022-11-11] MEDS: BALSAM PERU/CASTOR OIL 60 GM OINT...G. TP SCH (10:06)
[2022-11-11] MEDS: NYSTATIN 100,000 UNITS/GM CRM 30GM TUBE TOP SCH (10:07)
[2022-11-11] MEDS ORDERED: ONDANSETRON HCL 4 MG ORAL DISINTEGRATING TAB PO PRN (14:30)
[2022-11-11] MEDS: SODIUM CHLORIDE 0.9% 1000ML 1,000 ML IV SCH (21:01)
[2022-11-11] MEDS: HYDRALAZINE HCL 20 MG/ML VIAL IV PRN (23:33)
[2022-11-12] VITALS (7 sets, daily range): BP systolic 128–147; BP diastolic 66–84; PULSE 61–79; RESP 13–20; TEMP 97.4–97.8; O2SAT 97–100
[2022-11-12] MEDS ORDERED: MAGNESIUM SULFATE 2GM/50ML 50 ML IV ONE (04:45)
[2022-11-12] MEDS: CARVEDILOL 3.125 MG TAB PO SCH ×2 (09:20→17:25)
[2022-11-12] MEDS: NYSTATIN 100,000 UNITS/GM CRM 30GM TUBE TOP SCH (09:20)
[2022-11-12] MEDS: BALSAM PERU/CASTOR OIL 60 GM OINT...G. TP SCH (09:21)
[2022-11-12] MEDS: SODIUM CHLORIDE 0.9% 1000ML 1,000 ML IV SCH ×2 (17:24→19:42)
[2022-11-12] MEDS: Morphine 2mg Syringe 2 MG/ML SYR IV PRN (19:42)
[2022-11-13] MEDS: Morphine 2mg Syringe 2 MG/ML SYR IV PRN (00:42)
[2022-11-13] MEDS: HYDRALAZINE HCL 20 MG/ML VIAL IV PRN (00:43)
[2022-11-13 04:00] VITALS: BP 147/86; PULSE 76; RESP 20; TEMP 97.7; O2SAT 95
[2022-11-13] MEDS ORDERED: HYDROCODONE/APAP 10MG-325MG TAB PO PRN (06:45)
[2022-11-13 08:54] VITALS: BP_SYST 160; BP_DIAS 101; BP_DIAS 76; PULSE 73; RESP 16; TEMP 97.8; O2SAT 99
[2022-11-13] MEDS: CARVEDILOL 3.125 MG TAB PO SCH (09:34)
[2022-11-13 09:49] VITALS: BP 160/101; PULSE 73; RESP 16; TEMP 97.8; O2SAT 99
[2022-11-13 12:02] VITALS: BP 133/71; PULSE 70; RESP 21; TEMP 97.7; O2SAT 97
== END 2022-11-13 13:47 | disposition home or self-care (01) | DRG 871 ==
LOC: ER 23:10 → ERHOLD 11-06 00:48 → MERGE 11-06 00:48 → ICU 11-06 04:13 → MED/SURG2 11-08 18:02
PROVIDERS: ADMIT Internal Medicine; ATTEND Internal Medicine
PROC: 02HV33Z Insertion of Infusion Device into Superior Vena Cava, Percutaneous Approach (ICD-10-PCS; principal; 2022-11-06)
PROC: 02HV33Z Insertion of Infusion Device into Superior Vena Cava, Percutaneous Approach (ICD-10-PCS; 2022-11-06)
DX: A41.9 Sepsis, unspecified organism (principal); E43 Unspecified severe protein-calorie malnutrition; L89.154 Pressure ulcer of sacral region, stage 4; I47.1 Supraventricular tachycardia; N39.0 Urinary tract infection, site not specified; R62.7 Adult failure to thrive; E86.0 Dehydration; I10 Essential (primary) hypertension; Z68.23 Body mass index [BMI] 23.0-23.9, adult; Z63.8 Other specified problems related to primary support group
CPT/HCPCS: 36415; 36569; 70450; 71045; 80053; 81001; 82550; 82553; 83605; 83690; 83735; 84484; 85025; 87040; 93005; 93306; 96360; 96361; 99252; 99285; J1940; J2270; J2543; J3475; J3480; J7030